=== PATIENT | female | born 1955 | race Caucasian/White ===

== ENCOUNTER 2023-01-14 11:37 | Day surgery (SDC) | payer MEDICARE ==
[2023-01-14] MEDS ORDERED: LIDOCAINE HCL 2% 100 MG/5 ML IJ ONE (11:38)
[2023-01-14] MEDS ORDERED: Depo-Medrol 40 MG/ML IM ONE (11:38)
[2023-01-14] MEDS ORDERED: DIPRIVAN 200 MG/20 ML IV ONE (13:38)
[2023-01-14] MEDS ORDERED: Lactated Ringers 1,000 ML IV ONE (13:39)
--- NOTE | 2023-01-14 15:05 | XRAY ---
Indication: Bilateral L4-S1 MBB. Intraoperative fluoroscopy provided for 20 seconds. Single digital spot image submitted for interpretation demonstrates posterior needle tips projecting over the expected left and right L4-S1 nerve roots. Correlate with intraoperative findings/report. Incidental bilateral L5-S1 fusion hardware.
--- NOTE | 2023-01-14 17:34 | XRAY ---
20 seconds of fluoroscopy was used in surgery for a bilateral L4-S1 MBB.
== END 2023-01-14 13:52 | disposition home or self-care (01) ==
LOC: SDC-PAIN 11:37
PROVIDERS: ATTEND Psychiatry & Neurology Pain Medicine
DX: M47.816 Spondylosis without myelopathy or radiculopathy, lumbar region (principal); Z79.899 Other long term (current) drug therapy
CPT/HCPCS: 64493; 64494; 72020; 77002; J1030; J2704

== ENCOUNTER 2023-02-04 08:44 | Day surgery (SDC) | payer MEDICARE ==
[2023-02-04] MEDS ORDERED: BUPIVACAINE 0.5% VIAL IJ ONE (08:45)
[2023-02-04] MEDS ORDERED: Depo-Medrol 40 MG/ML IM ONE (08:45)
[2023-02-04] MEDS ORDERED: DIPRIVAN 200 MG/20 ML IV ONE (10:48)
[2023-02-04] MEDS ORDERED: Lactated Ringers 1,000 ML IV ONE (11:18)
--- NOTE | 2023-02-04 12:31 | XRAY ---
Indication: Bilateral L4-S1 MBB. Intraoperative fluoroscopy provided for 19 seconds. Single digital spot image submitted for interpretation demonstrates posterior needle tips projecting over the expected left and right L4-S1 nerve roots. Correlate with intraoperative findings/report. Incidental bilateral L5-S1 fusion hardware and incomplete visualized epidural leads.
--- NOTE | 2023-02-04 13:58 | XRAY ---
19 seconds of fluoroscopy was used in surgery for a bilateral L4-S1 MBB.
== END 2023-02-04 11:15 | disposition home or self-care (01) ==
LOC: SDC-PAIN 08:44
PROVIDERS: ATTEND Psychiatry & Neurology Pain Medicine
DX: M47.816 Spondylosis without myelopathy or radiculopathy, lumbar region (principal); Z79.899 Other long term (current) drug therapy
CPT/HCPCS: 64493; 64494; 72020; 77002; J1030; J2704

== ENCOUNTER 2023-11-18 09:39 | Day surgery (SDC) | payer MEDICARE ==
[2023-11-18] MEDS ORDERED: BUPIVACAINE 0.5% VIAL IJ ONE (09:40)
[2023-11-18] MEDS ORDERED: LIDOCAINE HCL 1% 50 MG/5 ML VL PF IJ ONE (09:40)
[2023-11-18] MEDS ORDERED: Depo-Medrol 40 MG/ML IM ONE (09:40)
[2023-11-18] MEDS ORDERED: DIPRIVAN 200 MG/20 ML IV ONE (12:11)
--- NOTE | 2023-11-18 13:20 | XRAY ---
Indication: Right L4-S1 RFA. Intraoperative fluoroscopy provided for 24 seconds. 8 digital spot images submitted for interpretation demonstrates posterior needle tips projecting over the expected right L4-S1 nerve roots. Correlate with intraoperative findings/report. Incidental bilateral L5-S1 fusion hardware.
--- NOTE | 2023-11-18 13:24 | XRAY ---
24 seconds of fluoroscopy was used in surgery for a right L4-S1 RFA.
[2023-11-18] MEDS ORDERED: Lactated Ringers 1,000 ML IV ONE (14:03)
== END 2023-11-18 12:45 | disposition home or self-care (01) ==
LOC: SDC-PAIN 09:39
PROVIDERS: ATTEND Psychiatry & Neurology Pain Medicine
DX: M47.816 Spondylosis without myelopathy or radiculopathy, lumbar region (principal); R73.03 Prediabetes
CPT/HCPCS: 64635; 64636; 72100; 77002; 82947; J2001; J2704

== ENCOUNTER 2023-12-02 06:41 | Day surgery (SDC) | payer MEDICARE ==
[2023-12-02] MEDS ORDERED: DIPRIVAN 200 MG/20 ML IV ONE (08:08)
--- NOTE | 2023-12-02 10:13 | XRAY ---
Indication: Left L4-S1 RFA. Intraoperative fluoroscopy provided for 21 seconds. 3 digital spot image submitted for interpretation demonstrates posterior needle tips projecting over the expected left L4-S1 nerve roots. Correlate with intraoperative findings/report. Incidental bilateral L5-S1 fusion hardware.
--- NOTE | 2023-12-02 11:40 | XRAY ---
21 seconds of fluoroscopy was used in surgery for a left L4-S1 RFA.
[2023-12-02] MEDS ORDERED: Lactated Ringers 1,000 ML IV ONE (12:07)
== END 2023-12-02 08:38 | disposition home or self-care (01) ==
LOC: SDC-PAIN 06:41
PROVIDERS: ATTEND Psychiatry & Neurology Pain Medicine
DX: M47.816 Spondylosis without myelopathy or radiculopathy, lumbar region (principal); E11.9 Type 2 diabetes mellitus without complications
CPT/HCPCS: 64635; 64636; 72100; 77002; 82947; J2704